=== PATIENT | male | born 1975 | race Caucasian/White ===

== ENCOUNTER 2020-10-24 08:58 | Outpatient (REF) | payer OTHER, SELFPAY ==
[2020-10-24 09:42] LABS: MANUAL DIFF FLAG NO
[2020-10-24 09:46] LABS: Basophils Absolute Auto 0.1 X10*3/uL (0.0-0.2); Basophils Percent Auto 0.9 % (0-2); Eosinophils Absolute Auto 0.2 X10*3/uL (0.0-0.4); Eosinophils Percent Auto 3.6 % (0-4); Hematocrit 45.7 % (42-52); Hemoglobin 14.8 g/dl (14.0-18.0); Imm Gran Abs Auto 0.02 X10*3/uL (0.00-0.03); Imm Gran Pct Auto 0.3 % (0.0-0.4); Lymphocytes Absolute Auto 1.3 X10*3/uL (1.2-4.9); Lymphocytes Percent Auto 22.1 % (20-40); Mean Corpuscular HGB Conc 32.4 g/dl (31.0-36.0); Mean Corpuscular Hemoglobin 28.5 pg (27.0-33.0); Mean Corpuscular Volume 87.9 fL (80-98); Mean Platelet Volume 9.8 fL (9.4-12.4); Monocytes Absolute Auto 0.4 X10*3/uL (0.1-1.2); Neutrophils Absolute Auto 3.9 X10*3/uL (2.0-8.3); Neutrophils Percent Auto 66.1 % (45-73); Platelet Count 311 X10*3/uL (160-400); Red Cell Distribution Width 12.5 % (11.0-16.0); White Blood Count 5.8 X10*3/uL (4.8-10.8)
[2020-10-24 10:09] LABS: Estimated Average Glucose 105 mg/dL; Hemoglobin A1c % 5.3 %
[2020-10-24 10:24] LABS: Alanine Aminotransferase 17 U/L (0-40); Albumin Level 4.3 g/dL (3.5-5.0); Alkaline Phosphatase 97 U/L (39-117); Anion Gap 12 (12-20); Aspartate Amino Transferase 20 U/L (5-37); Bilirubin Total 0.6 mg/dL (0.0-1.0); Blood Urea Nitrogen 16 mg/dL (9-16); Carbon Dioxide 27 mmol/L (22-29); Chloride 107 mmol/L (96-108); Cholesterol 177 mg/dL; Estimated Glomerular Filt Rate > 60; Glucose Random 92 mg/dL (60-115); HDL Cholesterol 40 mg/dL; LDL Cholesterol Calculated 121 mg/dl; Potassium 4.8 mmol/L (3.3-5.1); Sodium 141 mmol/L (135-145); Total Protein 7.3 g/dL (6.5-8.0); Triglycerides 83 mg/dL
[2020-10-24 10:54] LABS: Free T4 (Free Thyroxine) 1.06 ng/dL (0.71-1.85); Thyroid Stimulating Hormone 0.95 uIU/mL (0.32-4.0)
[2020-10-28 05:30] LABS: Folate 3.2 ng/mL (> or = 4.0); Vitamin B12 222 pg/mL (200-900)
== END 2020-10-24 08:59 | disposition home or self-care (01) ==
LOC: HO.LAB 08:58
PROVIDERS: PCP Internal Medicine; Visit Provider Internal Medicine
DX: E78.1 Pure hyperglyceridemia (principal); R63.1 Polydipsia; E78.00 Pure hypercholesterolemia, unspecified
CPT/HCPCS: 36415; 80053; 80061; 82607; 82746; 83036; 84439; 84443; 85025

== ENCOUNTER 2020-11-29 15:25 | Outpatient (REF) | payer OTHER, SELFPAY ==
--- NOTE | ~2020-11-29 | XR_ITS ---
EXAMINATION: XR knee standing BI, XR knee LT 2V CLINICAL INFORMATION: Reason for Exam M25.561 - Pain in right knee COMPARISON: None available at the time of this dictation. TECHNIQUE: Bilateral frontal, left lateral and patella sunrise view. FINDINGS: BONES: No fracture or dislocation is present. JOINTS: Mild narrowing of joint spaces suggest degenerative osteoarthritis. SOFT TISSUE: Normal XR/XR knee standing BI IMPRESSION: Mild DJD. No knee joint effusion.
--- NOTE | ~2020-11-29 | XR_ITS ---
EXAMINATION: XR knee standing BI, XR knee LT 2V CLINICAL INFORMATION: Reason for Exam M25.561 - Pain in right knee COMPARISON: None available at the time of this dictation. TECHNIQUE: Bilateral frontal, left lateral and patella sunrise view. FINDINGS: BONES: No fracture or dislocation is present. JOINTS: Mild narrowing of joint spaces suggest degenerative osteoarthritis. SOFT TISSUE: Normal XR/XR knee LT 2V IMPRESSION: Mild DJD. No knee joint effusion.
== END 2020-11-29 15:26 | disposition home or self-care (01) ==
LOC: HO.HOSX 15:25
PROVIDERS: Visit Provider Orthopaedic Surgery
DX: M25.562 Pain in left knee (principal); M25.561 Pain in right knee
CPT/HCPCS: 73560; 73565

== ENCOUNTER → 2020-11-30 09:46 | Outpatient (BNVA) | payer OTHER, SELFPAY | PROVIDERS: PCP Internal Medicine; Visit Provider Orthopaedic Surgery | DX: M22.2X2 Patellofemoral disorders, left knee (principal) | CPT/HCPCS: 20610; 99212; J1040 ==

== ENCOUNTER 2021-02-24 09:32 | Outpatient (REF) | payer OTHER, SELFPAY ==
[2021-02-24 10:18] LABS: MANUAL DIFF FLAG NO
[2021-02-24 10:22] LABS: Basophils Absolute Auto 0.1 X10*3/uL (0.0-0.2); Eosinophils Absolute Auto 0.2 X10*3/uL (0.0-0.4); Hematocrit 46.4 % (42-52); Hemoglobin 14.9 g/dl (14.0-18.0); Imm Gran Abs Auto 0.04 X10*3/uL (0.00-0.03); Imm Gran Pct Auto 0.7 % (0.0-0.4); Lymphocytes Absolute Auto 1.8 X10*3/uL (1.2-4.9); Lymphocytes Percent Auto 30.2 % (20-40); Mean Corpuscular HGB Conc 32.1 g/dl (31.0-36.0); Mean Corpuscular Hemoglobin 28.3 pg (27.0-33.0); Mean Platelet Volume 9.8 fL (9.4-12.4); Monocytes Absolute Auto 0.6 X10*3/uL (0.1-1.2); Monocytes Percent Auto 9.5 % (2-11); Neutrophils Absolute Auto 3.2 X10*3/uL (2.0-8.3); Neutrophils Percent Auto 54.6 % (45-73); Platelet Count 288 X10*3/uL (160-400); Red Blood Count 5.27 X10*6/uL (4.60-5.80); Red Cell Distribution Width 12.7 % (11.0-16.0); White Blood Count 5.8 X10*3/uL (4.8-10.8)
[2021-02-24 10:44] LABS: Alanine Aminotransferase 12 U/L (0-40); Albumin Level 4.4 g/dL (3.5-5.0); Alkaline Phosphatase 81 U/L (39-117); Anion Gap 13 (12-20); Aspartate Amino Transferase 17 U/L (5-37); Bilirubin Total 0.7 mg/dL (0.0-1.0); Blood Urea Nitrogen 17 mg/dL (9-16); C Reactive Protein 0.16 mg/dL (< or = 0.50); Calcium 9.5 mg/dL (8.4-10.2); Carbon Dioxide 25 mmol/L (22-29); Chloride 106 mmol/L (96-108); Estimated Glomerular Filt Rate > 60; Glucose Random 90 mg/dL (60-115); Potassium 4.5 mmol/L (3.3-5.1); Sodium 139 mmol/L (135-145); Total Protein 7.3 g/dL (6.5-8.0)
[2021-02-24 11:04] LABS: Erythrocyte Sedimentation Rate 2 MM/HR (0-15)
[2021-02-24 11:05] LABS: Thyroid Stimulating Hormone 0.69 uIU/mL (0.32-4.0)
[2021-02-24 11:10] LABS: Folate > 20.0 ng/mL (> or = 4.0); Vitamin B12 527 pg/mL (200-900)
[2021-02-28 22:16] LABS: Intrinsic Factor Antibodies Negative (Negative)
[2021-02-28 23:27] LABS: Parietal Cell Antibody <=20.0 Unit (<=20.0)
== END 2021-02-24 09:33 | disposition home or self-care (01) ==
LOC: HO.LAB 09:32
PROVIDERS: PCP Internal Medicine; Visit Provider Internal Medicine
DX: M79.10 Myalgia, unspecified site (principal); E53.8 Deficiency of other specified B group vitamins
CPT/HCPCS: 36415; 80053; 82607; 82746; 83516; 84443; 85025; 85652; 86140; 86340

== ENCOUNTER 2021-06-13 09:53 | Emergency (ER) | payer BC, SELFPAY ==
--- NOTE | 2021-06-13 | ECG_ITS ---
Test Reason : CHESTPAIN Blood Pressure : / mmHG Vent. Rate : 077 BPM Atrial Rate : 077 BPM P-R Int : 168 ms QRS Dur : 072 ms QT Int : 352 ms P-R-T Axes : 073 038 031 degrees QTc Int : 398 ms Normal sinus rhythm Normal ECG When compared with ECG of 02-MAY-2020 13:03, No significant change was found Referred By: Generic ED Physician Electronically Signed By:HARPER MUNGUIA MD
--- NOTE | ~2021-06-13 | XR_ITS ---
EXAMINATION: XR CHEST CLINICAL INFORMATION: Chest pain. COMPARISON: None TECHNIQUE: Frontal view of the chest was obtained. FINDINGS: The lungs are hyperinflated but clear of acute process. The heart size and pulmonary vascularity is normal. No gross bony abnormality seen. XR/XR chest 1V IMPRESSION: Hyperinflated lungs without acute process.
[2021-06-13 10:12] VITALS: BP 136/92; PULSE 72; RESP 16; TEMP 36.8; O2SAT 100; BMI 27.7
--- NOTE | 2021-06-13 11:22 | ED.CHESTPAIN ---
HPI - Chest Pain General Chief Complaint: Chest Pain Stated Complaint: chest pain Time Seen by Provider: 06/13/21 11:05 Source: patient Mode of arrival: ambulatory Limitations: no limitations History of Present Illness HPI narrative: 46-year-old male came in for evaluation of chest pain. Chest pain has been going for few weeks, intermittent, moderate 5/10, localized to mid chest, no radiation, nonexertional full wrist going to take the pain away, stress worsening the pain, no other associated symptoms, the patient stated that this pain is been going for few years intermittently but he never seek medical attention until today he spoke with his PCP who sent him to the the ED for further evaluation. Patient declined any recent travel, no prolonged immobilization, lower extremity swelling or tenderness. No fever, no chills, no exposure to sick contacts.. No family history of PE/dissection/MT. Patient is tobacco user, with history of hyperglycemia but declined hypertension or Diabetes type Related Data Previous Rx's Medication Instructions Recorded fluticasone propionate 50 2 spray INTRANASAL DAILY #16 g 09/23/20 mcg/actuation nasal spray,suspension (Allergy Relief (fluticasone)) triamcinolone acetonide 0.5 % 1 appl TOPICAL BID #15 g 10/21/20 topical cream cyanocobalamin (vitamin B-12) 1,000 mcg PO DAILY #30 cap 03/12/21 1,000 mcg capsule folic acid 1 mg tablet 1 mg PO DAILY #30 tab 03/12/21 Allergies Allergy/AdvReac Type Severity Reaction Status Date / Time No Known Allergies Allergy Verified 02/24/21 08:38 Review of Systems Review of Systems: All other systems are reviewed and are negative Constitutional: Reports as per HPI and Reports no additional constitutional complaints Eyes: Reports as per HPI and Reports no additional eye complaints Reports system reviewed and no additional complaints, except as documented Cardiovascular: Reports as per HPI and Reports no additional cardiovascular complaints Respiratory: Reports as per HPI and Reports no additional respiratory complaints Gastrointestinal: Reports as per HPI and Reports no additional gastrointestinal complaints Genitourinary: Reports no additional female genitourinary complaints Musculoskeletal: Reports no additional musculoskeletal complaints Skin/Breast: Reports system reviewed and no additional complaints, except as docu Psychiatric: Reports no additional psychiatric complaints Endocrine: Reports no additional endocrine complaints Hematologic/Lymphatic: Reports no additional hematologic/lymphatic complaints Allergic/Immunologic: Reports no additional allergic/immunologic complaints Reports system reviewed and no additional complaints, except as documented and Reports Abnormal speech present [facility] Past Medical History Medical History Alcohol abuse Asthma Erectile dysfunction GERD (gastroesophageal reflux disease) Hypertriglyceridemia Osteoarthritis, knee Overweight (BMI 25.0-29.9) Tobacco abuse Surgical History History of inguinal hernia repair Family History Family History Father Diabetes Hypertension Mother Alzheimers disease Paternal Aunt Myocardial infarction Social History Social History Housing: Apartment Alcohol intake: former Patient Tobacco Use Status: Current everyday Tobacco user Tobacco use type: Cigarette Cigarette Packs Per Day: 0.5 Cigarettes Per Day: 7 e-Cigarette/Vaping Use: Never Used Second Hand Smoke Exposure: Yes Advance Directives: No service: No Current occupational status: employed Physical Exam Vital Signs: Vital Signs: Last Vital Signs Temp 98.3 F 06/13/21 10:12 Pulse 72 06/13/21 10:12 Resp 16 06/13/21 10:12 BP 136/92 H 06/13/21 10:12 Pulse Ox 100 06/13/21 10:12 Body Mass Index 27.7 Vital signs have been reviewed as appeared to be correct. Blood pressure normal. Heart rate normal. Respiration rate normal. Temperature normal. Oxygen saturation normal. Appearance: Alert. Oriented X3. No acute distress. Head: Normal external exam. Normocephalic. Atraumatic. No Ferreira signs noted. No raccoon eyes noted Eyes: PERRLA. EOMI. Conjunctiva and sclera normal. Eyelids normal. ENT: TM's Normal. Pharynx normal. Uvula midline. Moist mucous membranes. No trismus noted. No drooling noted. No muffled voice noted. Neck: Normal inspection. Neck supple. FROM. No adenopathy. Thyroid Normal. No meningeal signs. No neck mass noted. CVS: Normal heart rate and rhythm. Heart sound normal. No murmurs noted. Pulses normal throughout. Respiratory: No respiratory distress. Painless inspiration. Breath sounds normal. No wheezes/rales/rhonchi noted. Chest nontender. No accessory muscle usage noted or decreased air movement noted. Abdomen: Soft and nontender. Bowel sounds normal in all 4 quadrants. No distention noted. No organomegaly noted. No visible injury noted. Back: No CVA tenderness. Full range of motion noted. Skin: Skin warm and dry. Normal skin color. Normal skin turgor. No rashes/lesions/lacerations noted. Extremities: No lower extremity edema. Extremities exhibit normal range of motion. Extremities nontender. Neuro: Oriented X 3. Cranial nerve exam: II-XII are grossly intact No motor deficit. No sensory deficit. Reflexes normal. Course Course Course Narrative: Assessment and plan. 46-year-old male came in for evaluation of chest pain that has been going on for a while intermittently, working today ruled out ACS. Patient was instructed to follow-up with PCP and have a outpatient Cardiology evaluation. MDM - Chest Pain Medical Records Data Attestation: I reviewed the patient's medical records. Lab Data Attestation: I reviewed the patient's lab results. Result diagrams: 06/13/21 12:16 06/13/21 12:16 Labs: Lab Results 06/13/21 06/13/21 06/13/21 Range/Units 12:16 12:16 12:16 WBC 7.5 (4.8-10.8) X10*3/uL RBC 5.15 (4.60-5.80) X10*6/uL Hgb 14.6 (14.0-18.0) g/dl Hct 45.3 (42-52) % MCV 88.0 (80-98) fL MCH 28.3 (27.0-33.0) pg MCHC 32.2 (31.0-36.0) g/dl RDW 12.9 (11.0-16.0) % Plt Count 291 (160-400) X10*3/uL MPV 9.9 (9.4-12.4) fL Immature Gran % (Auto) 0.3 (0.0-0.4) % Neut % (Auto) 60.7 (45-73) % Lymph % (Auto) 27.3 (20-40) % [place] % (Auto) 7.9 (2-11) % Eos % (Auto) 3.1 (0-4) % Baso % (Auto) 0.7 (0-2) % Lymph # (Auto) 2.0 (1.2-4.9) X10*3/uL [place] # (Auto) 0.6 (0.1-1.2) X10*3/uL Eos # (Auto) 0.2 (0.0-0.4) X10*3/uL Baso # (Auto) 0.1 (0.0-0.2) X10*3/uL Abs Immat Gran (auto) 0.02 (0.00-0.03) X10*3/uL Absolute Neuts (auto) 4.6 (2.0-8.3) X10*3/uL Absolute Nucleated RBC 0.000 (0.0-0.012) X10*3/uL Nucleated RBC % (auto) 0.0 (0.0-0.2) /100WBC D-Dimer < 200 NG/ML Sodium 139 (135-145) mmol/L Potassium 4.2 (3.3-5.1) mmol/L Chloride 106 (96-108) mmol/L Carbon Dioxide 24 (22-29) mmol/L Anion Gap 13 (12-20) BUN 13 (9-16) mg/dL Creatinine 0.98 (0.5-1.4) mg/dL Estim Creat Clear Calc 105.3 Estimated GFR > 60 Random Glucose 89 (60-115) mg/dL Calcium 9.7 (8.4-10.2) mg/dL Total Bilirubin 0.6 (0.0-1.0) mg/dL Direct Bilirubin 0.2 (0.0-0.5) mg/dL AST 19 (5-37) U/L ALT 15 (0-40) U/L Alkaline Phosphatase 73 (39-117) U/L Troponin I High Sens (<3.5-35.0) ng/L Total Protein 7.6 (6.5-8.0) g/dL Albumin 4.4 (3.5-5.0) g/dL Lipase 23 (8-78) U/L Urine Color Urine Appearance Urine pH (5.0-8.0) Ur Specific [place] (1.005-1.025) Urine Protein (NEG-TRACE) MG/DL Urine Glucose (UA) (NEG) MG/DL Urine Ketones (NEG) MG/DL Urine Blood (NEG) Urine Nitrite (NEG) Ur Leukocyte Esterase (NEG) Urine RBC (0) /HPF Urine WBC (0-4) /HPF Ur Squamous Epith Cells /LPF Calcium Phosphate Cryst /LPF Urine Bacteria /LPF COVID-19 ([facility]) (Negative) COVID-19 Clin Com 06/13/21 06/13/21 06/13/21 Range/Units 12:16 12:18 13:26 WBC (4.8-10.8) X10*3/uL RBC (4.60-5.80) X10*6/uL Hgb (14.0-18.0) g/dl Hct (42-52) % MCV (80-98) fL MCH (27.0-33.0) pg MCHC (31.0-36.0) g/dl RDW (11.0-16.0) % Plt Count (160-400) X10*3/uL MPV (9.4-12.4) fL Immature Gran % (Auto) (0.0-0.4) % Neut % (Auto) (45-73) % Lymph % (Auto) (20-40) % [place] % (Auto) (2-11) % Eos % (Auto) (0-4) % Baso % (Auto) (0-2) % Lymph # (Auto) (1.2-4.9) X10*3/uL [place] # (Auto) (0.1-1.2) X10*3/uL Eos # (Auto) (0.0-0.4) X10*3/uL Baso # (Auto) (0.0-0.2) X10*3/uL Abs Immat Gran (auto) (0.00-0.03) X10*3/uL Absolute Neuts (auto) (2.0-8.3) X10*3/uL Absolute Nucleated RBC (0.0-0.012) X10*3/uL Nucleated RBC % (auto) (0.0-0.2) /100WBC D-Dimer NG/ML Sodium (135-145) mmol/L Potassium (3.3-5.1) mmol/L Chloride (96-108) mmol/L Carbon Dioxide (22-29) mmol/L Anion Gap (12-20) BUN (9-16) mg/dL Creatinine (0.5-1.4) mg/dL Estim Creat Clear Calc Estimated GFR Random Glucose (60-115) mg/dL Calcium (8.4-10.2) mg/dL Total Bilirubin (0.0-1.0) mg/dL Direct Bilirubin (0.0-0.5) mg/dL AST (5-37) U/L ALT (0-40) U/L Alkaline Phosphatase (39-117) U/L Troponin I High Sens < 3.5 (<3.5-35.0) ng/L Total Protein (6.5-8.0) g/dL Albumin (3.5-5.0) g/dL Lipase (8-78) U/L Urine Color YELLOW Urine Appearance CLEAR Urine pH 6.0 (5.0-8.0) Ur Specific [place] 1.010 (1.005-1.025) Urine Protein NEG (NEG-TRACE) MG/DL Urine Glucose (UA) NEG (NEG) MG/DL Urine Ketones NEG (NEG) MG/DL Urine Blood TRACE (NEG) Urine Nitrite NEG (NEG) Ur Leukocyte Esterase NEG (NEG) Urine RBC 1-4 (0) /HPF Urine WBC 0-2 (0-4) /HPF Ur Squamous Epith Cells NONE /LPF Calcium Phosphate Cryst TRACE /LPF Urine Bacteria TRACE /LPF COVID-19 ([facility]) Negative (Negative) COVID-19 Clin Com See Note Imaging Data Chest x-ray: Radiologist's impression: No acute pathology. ECG Data ECG #1: Interpretation: Normal sinus rhythm at 77 beats per minutes, normal axis deviation, normal intervals, no ST-T changes. Discharge Plan Discharge Clinical Impression: Chest pain Qualifiers: Chest pain type: unspecified Qualified Code(s): R07.9 - Chest pain, unspecified Patient Disposition: Home, Self-Care Instructions: Chest Pain (ED) Prescriptions: No Action fluticasone propionate [Allergy Relief (fluticasone)] 50 mcg/actuation spray,suspension 2 spray intranasal DAILY Qty: 16 RF: 0 folic acid 1 mg tablet 1 mg PO DAILY Qty: 30 RF: 3 cyanocobalamin (vitamin B-12) 1,000 mcg capsule 1,000 mcg PO DAILY Qty: 30 RF: 3 triamcinolone acetonide 0.5 % cream 1 appl topical BID Qty: 15 RF: 0 Referrals: Po,Shahla Hensley MD [Primary Care Provider] - 2 days Luis Angel Radford MD [Physician] - 2 days
[2021-06-13 12:24] LABS: MANUAL DIFF FLAG NO
[2021-06-13 12:25] LABS: Basophils Absolute Auto 0.1 X10*3/uL (0.0-0.2); Basophils Percent Auto 0.7 % (0-2); Eosinophils Absolute Auto 0.2 X10*3/uL (0.0-0.4); Eosinophils Percent Auto 3.1 % (0-4); Hematocrit 45.3 % (42-52); Hemoglobin 14.6 g/dl (14.0-18.0); Imm Gran Abs Auto 0.02 X10*3/uL (0.00-0.03); Imm Gran Pct Auto 0.3 % (0.0-0.4); Lymphocytes Percent Auto 27.3 % (20-40); Mean Corpuscular HGB Conc 32.2 g/dl (31.0-36.0); Mean Corpuscular Hemoglobin 28.3 pg (27.0-33.0); Mean Platelet Volume 9.9 fL (9.4-12.4); Monocytes Absolute Auto 0.6 X10*3/uL (0.1-1.2); Monocytes Percent Auto 7.9 % (2-11); Neutrophils Absolute Auto 4.6 X10*3/uL (2.0-8.3); Neutrophils Percent Auto 60.7 % (45-73); Platelet Count 291 X10*3/uL (160-400); Red Blood Count 5.15 X10*6/uL (4.60-5.80); Red Cell Distribution Width 12.9 % (11.0-16.0); White Blood Count 7.5 X10*3/uL (4.8-10.8)
[2021-06-13 12:33] LABS: D Dimer < 200 NG/ML
[2021-06-13 12:34] LABS: Appearance Urine CLEAR; Color Urine YELLOW; Glucose Urine UA NEG (NEG); Leukocyte Esterase Urine NEG (NEG); Nitrite Urine NEG (NEG); UACC Culture Trigger NO; Urine Blood TRACE (NEG); Urine Ketones NEG (NEG); Urine Protein NEG (NEG-TRACE)
[2021-06-13 12:38] LABS: Alanine Aminotransferase 15 U/L (0-40); Albumin Level 4.4 g/dL (3.5-5.0); Alkaline Phosphatase 73 U/L (39-117); Anion Gap 13 (12-20); Aspartate Amino Transferase 19 U/L (5-37); Bilirubin Direct 0.2 mg/dL (0.0-0.5); Bilirubin Total 0.6 mg/dL (0.0-1.0); Blood Urea Nitrogen 13 mg/dL (9-16); Calcium 9.7 mg/dL (8.4-10.2); Carbon Dioxide 24 mmol/L (22-29); Chloride 106 mmol/L (96-108); Creatinine Clr Calc Pharmacy 105.3; Estimated Glomerular Filt Rate > 60; Glucose Random 89 mg/dL (60-115); Lipase 23 U/L (8-78); Potassium 4.2 mmol/L (3.3-5.1); Sodium 139 mmol/L (135-145); Total Protein 7.6 g/dL (6.5-8.0)
[2021-06-13 12:44] LABS: Calcium Phosphate Crystals Ur TRACE /LPF
[2021-06-13 12:45] LABS: Bacteria Urine TRACE /LPF; WBC Urine 0-2 /HPF (0-4)
[2021-06-13 12:48] LABS: COVID-19 Test Negative (Negative)
[2021-06-13 13:57] LABS: Troponin-I High Sensitivity < 3.5 ng/L (<3.5-35.0)
== END 2021-06-13 14:26 | disposition home or self-care (01) ==
PROVIDERS: Emergency Provider Emergency Medicine; PCP Internal Medicine
DX: R07.9 Chest pain, unspecified (principal); F17.210 Nicotine dependence, cigarettes, uncomplicated; Z71.6 Tobacco abuse counseling; Z79.899 Other long term (current) drug therapy; Z20.822 Contact with and (suspected) exposure to COVID-19
CPT/HCPCS: 36415; 71045; 80048; 80076; 81001; 83690; 84484; 85025; 85379; 87635; 93005; 99283

== ENCOUNTER 2021-11-08 11:52 | Outpatient (REF) | payer BC, SELFPAY ==
--- NOTE | ~2021-11-08 | XR_ITS ---
EXAMINATION: XR HAND, LEFT CLINICAL INFORMATION: Enthesopathy COMPARISON: None TECHNIQUE: PA, lateral, and oblique views of the left hand. FINDINGS: There is a lucency seen in the distal tuft of the thumb on one view, the lateral view, questionable for changes from old trauma. No acute fracture or dislocation is seen. Joint spaces are normal. Soft tissues are normal. XR/XR hand LT min 3V IMPRESSION: Question old trauma to the distal tuft of the thumb otherwise unremarkable exam.
== END 2021-11-08 11:53 | disposition home or self-care (01) ==
LOC: HO.HMGCX 11:52
PROVIDERS: Visit Provider Internal Medicine
DX: M77.8 Other enthesopathies, not elsewhere classified (principal)
CPT/HCPCS: 73130

== ENCOUNTER 2023-08-13 10:17 | Outpatient (AMB) | payer OTHER, SELFPAY ==
[2023-08-13 10:20] VITALS: BP 136/96; PULSE 75; O2SAT 98; BMI 31.5
--- NOTE | 2023-08-13 10:20 | A.OFFPC_ITS ---
Vital Signs 08/13/23 10:20 Height 5 ft 11 in Weight 226 lb BMI 31.5 BP 136/96 H Blood Pressure Location Lt brachial Position Sitting Pulse 75 Pulse Source Pulse Oximeter Pulse Oximetry (%) 98 Oxygen Delivery Method Room Air Intake Visit Reasons: possible ear infection Intake Note: Pt is here for a ear infection on right ear, been going on for 1 week. Pt went to urgent care and he was given antibiotics and ear drops. 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 Patient presents today for question of ear infection. Patient and reports left ear congestion and nasal congestion. Patient reports that his left ear is uncomfortable and feels like it is popping. Patient denies any fever, chills, cough or shortness of breath. Patient states he went to urgent care last week and he was started on Augmentin for an ear infection patient reports he still has over 6 doses of the medication left. Patient currently on Flonase and Kendra for allergy medication. Patient requesting a note for work. [facility] Medical History Alcohol abuse Asthma Erectile dysfunction GERD (gastroesophageal reflux disease) Hypertriglyceridemia Osteoarthritis, knee Overweight (BMI 25.0-29.9) Tobacco abuse Surgical History History of inguinal hernia repair Family History Father Diabetes Hypertension Mother Alzheimers disease Paternal Aunt Myocardial infarction Social History Housing: Apartment Alcohol intake: former Patient Tobacco Use Status: Current everyday Tobacco user Tobacco use type: Cigarette Cigarette Packs Per Day: 0.5 Cigarettes Per Day: 7 e-Cigarette/Vaping Use: Never Used Second Hand Smoke Exposure: Yes service: No Current occupational status: employed Cognitive needs: No Hearing needs: No Vision needs: No Questionnaire Thrive Questionnaire Date Thrive assessed: 09/06/22 ЕКАТЕРИНА-7 AMB Questionnaire ЕКАТЕРИНА-7 Date ЕКАТЕРИНА - 7 assessed: 09/06/22 Source: Developed by Drs. Shawn Clifton, Lexie Oakes, Tomas Rodriguez and colleagues, with an educational monae from [employer]. Review of Systems Const Denies chills, Denies fatigue, Denies fever(s) and Denies poor appetite Eyes Denies no additional complaints ENT Reports otalgia (right ear), Reports nasal congestion, Reports nasal discharge and Reports other (right ear is blocked ) Card Denies chest pain, Denies syncope, Denies rapid heart rate and Denies dyspnea Resp Denies cough and Denies dyspnea GI Denies change in stool character, Denies constipation, Denies diarrhea, Denies nausea and Denies vomiting Denies dysuria, Denies urinary frequency and Denies urinary urgency Neuro Denies confusion and Denies syncope Psych Denies confusion Endo Denies fatigue Physical exam (Primary Care) Vital Signs: Last Vital Signs Pulse 75 08/13/23 10:20 BP 136/96 H 08/13/23 10:20 Pulse Ox 98 08/13/23 10:20 Oxygen Delivery Method Room Air 08/13/23 10:20 BMI result Body Mass Index 31.5 Tobacco/Smoking Status: Tobacco use Status Tobacco use date assessed 09/06/22 08/13/23 10:31 Patient Tobacco Use Status Current everyday Tobacco 08/13/23 10:31 Tobacco use type Cigarette 08/13/23 10:31 e-Cigarette/Vaping Use Never Used 08/13/23 10:31 Thrive Assessment: Date of Thrive Assessment Date Thrive assessed 09/06/22 08/13/23 10:31 Const General: No confusion Orientation/consciousness: No confusion HENMT Head: Yes normocephalic and Yes atraumatic Ears: TM abnormal bullous on the right and erythematous on the right General nose exam: Normal nares present and Nasal discharge present clear Face and sinus: Yes normal facial exam and Yes sinus tenderness Eyes Conjunctivae: conjunctivae normal Chest Chest palpation & inspection: normal inspection of the chest Resp Effort & Inspection: normal respiratory effort Auscultation: clear to auscultation bilaterally, no crackles, no rhonchi and no wheezes Cardio Rate: regular rate Rhythm: regular rhythm Heart sounds: S1 normal heart sound present and S2 normal heart sound present GI Inspection: Yes normal to inspection Neuro General: No confusion Extrem General: No edema Assessment and Plan Assessment & Plan (1) Right otitis media: Code(s): H66.91 - Otitis media, unspecified, right ear Plan: Patient advised to continue on Augmentin for right otitis media and to continue on Kendra and Flonase daily for nasal congestion and allergies. Patient advise can take [id number] ibuprofen or Tylenol as needed for discomfort and right ear. Patient requesting a work note, work note given for today and tomorrow patient advised to drink plenty of fluids and rest. Signs and symptoms reviewed with patient when to follow-up Patient agreeable to plan of care. Plan Keep scheduled follow-up with PCP or follow-up sooner needed Coding Level of Care Code Est Pt Level 3 (44550) Diagnoses Right otitis media H66.91
== END 2023-08-13 11:46 | disposition home or self-care (01) ==
PROVIDERS: PCP Internal Medicine; Visit Provider Nurse Practitioner Family
DX: H66.91 Otitis media, unspecified, right ear (principal)
CPT/HCPCS: 99213

== ENCOUNTER 2025-07-22 15:49 | Emergency (ER) | payer SELFPAY ==
--- NOTE | ~2025-07-22 | XR_ITS ---
EXAMINATION: XR KNEE, RIGHT CLINICAL INFORMATION: knee pain COMPARISON: 11/30/2020 TECHNIQUE: Four views of the right knee. FINDINGS: No fracture, dislocation, or suspicious bone lesion. Normal bone mineralization. Normal alignment. There is minimal joint space narrowing of the medial and patellofemoral compartments. Lateral compartment is normal. Internal spurring of the tibial spines. No significant joint effusion. Soft tissues appear normal. XR/XR knee RT 4V IMPRESSION: 1. No acute bony or soft tissue abnormality of the right knee. No evidence of joint effusion. 2. Minimal medial and patellofemoral compartment osteoarthrosis. Electronically signed by: Derek Garcia MD 07/22/2025 04:50 PM EST
--- NOTE | ~2025-07-22 | US_ITS ---
CLINICAL HISTORY: Rightleg pain Venous duplex ultrasound right lower extremity Comparison: None provided Findings: The visualized deep veins are fully compressible with normal Doppler color flow and spectral tracings. IMPRESSION: 1. Negative for right lower extremity deep vein thrombosis. This document has been electronically signed by: Janette Naik MD on 07/22/2025 18:53:23
--- NOTE | ~2025-07-22 | XR_ITS ---
EXAMINATION: XR TIBIA AND FIBULA, RIGHT CLINICAL INFORMATION: knee pain COMPARISON: None available. TECHNIQUE: AP and lateral views of the right tibia and fibula were obtained. FINDINGS: The bones and soft tissues are normal. No fracture. No osseous lesions. XR/XR tibia fibula RT 2V IMPRESSION: Normal right tibia and fibula. Electronically signed by: Derek Garcia MD 07/22/2025 04:51 PM EST
[2025-07-22 15:58] VITALS: BP 147/99; PULSE 68; RESP 20; TEMP 36.4; O2SAT 99; BMI 28.9
--- NOTE | 2025-07-22 16:05 | ED_ITS ---
HPI - General Adult General Chief complaint: Extremity Injury, Lower Stated complaint: Knee Leg Pain Time Seen by Provider: 07/22/25 18:12 Source: patient Mode of arrival: ambulatory Limitations: no limitations History of Present Illness ED Provider: Misbah Plata HPI narrative: 50 yold male with ЕКАТЕРИНА, Vit[place] B12 and folic defeicincy presents to the ED for knee pain. Patinet states Knee pain is worser on movement. Patient denies any swelling, redness, chest pain, leg swelling, shortness of breath. Related Data Previous Rx's ?Medication ?Instructions ?Recorded fluticasone propionate 50 2 spray intranasal DAILY #16 grams 09/06/22 mcg/actuation nasal spray,suspension (Allergy Relief (fluticasone)) naproxen 500 mg tablet 500 mg PO BID PRN pain #14 t abs 07/22/25 prednisone 20 mg tablet 40 mg (2 x 20 mg) PO DAILY 5 days 07/22/25 #10 tabs Allergies Allergy/AdvReac Type Severity Reaction Status Date / Time No Known Allergies Allergy Verified 07/22/25 16:02 Review of Systems 2 Review of Systems: RIght knee posterior calf pain Yes all other systems are reviewed and are negative [facility] Past Medical History Medical History Alcohol abuse Asthma Erectile dysfunction GERD (gastroesophageal reflux disease) Hypertriglyceridemia Osteoarthritis, knee Overweight (BMI 25.0-29.9) Tobacco abuse Surgical History History of inguinal hernia repair Family History Family History Father Diabetes Hypertension Mother Alzheimers disease Paternal Aunt Myocardial infarction Social History Social History Housing: Apartment Alcohol intake: former Patient Tobacco Use Status: Current everyday Tobacco user Tobacco use type: Cigarette Cigarette Packs Per Day: 0.5 Cigarettes Per Day: 7 e-Cigarette/Vaping Use: Never Used Second Hand Smoke Exposure: Yes Advance Directives: No Advance Directives Information Provided: No Do you have a plan to hurt others: No Plan service: No Current occupational status: employed Cognitive needs: No Hearing needs: No Vision needs: No Physical Exam ED Vital Signs: Vital Signs - 24 hr 07/22/25 15:58 Temperature 97.5 F Pulse Rate 68 Respiratory Rate 20 Blood Pressure 147/99 H Pulse Oximetry 99 Oxygen Delivery Method Room Air BMI result Body Mass Index 28.9 Const General: cooperative, healthy appearing, comfortable, no acute distress, well developed, alert, awake and Physically active Orientation/consciousness: patient oriented x3 [facility] Head: Yes normal to inspection, Yes No palpable skull fracture present, Yes normocephalic and Yes atraumatic Eyes General: appearance normal, both eyes and all related structures Neck Neck: Yes normal visual inspection, Yes full ROM, Yes no lymphadenopathy, Yes no meningeal signs, Yes trachea midline, Yes supple, No anterior neck swelling and No tender Chest Chest palpation & inspection: normal inspection of the chest and normal palpation of entire chest wall Resp Effort & Inspection: normal respiratory effort and able to speak in complete sentences Auscultation: clear to auscultation bilaterally Cardio Jugular venous distension: no JVD Heart sounds: S1 normal heart sound present and S2 normal heart sound present GI Inspection: Yes normal to inspection Palpation (GI): Soft to palpation, not firm, nontender, no guarding and not rigid General: Yes no CVA tenderness Back/Spine/Pelvis Back: no CVA tenderness and No back tenderness Skin General skin exam: no rashes or lesions noted, elasticity normal and turgor normal Neuro General: patient oriented x3, gait normal, tone normal, moves all extremities, Normal light touch and pain sensation, no meningeal signs, no focal motor deficits, CN's II-XI intact bilaterally and normal sensation to monofilament Extrem General: Yes normal to inspection, Yes full ROM and Yes capillary refill normal Knee images: 2 1. Positive for tenderness on palpation. Negative crepitus, erythema, swelling, stiffness, bluish black discoloration, hotness, coldness, lesions, or red streaks. Rest of extremity normal. Motor/neuro/vascular exam intact 2. Positive for tenderness on palpation. Negative crepitus, erythema, swelling, stiffness, bluish black discoloration, hotness, coldness, lesions, or red streaks. Rest of extremity normal. Motor/neuro/vascular exam intact 3. Positive for tenderness on palpation. Negative crepitus, erythema, swelling, stiffness, bluish black discoloration, hotness, coldness, lesions, or red streaks. Rest of extremity normal. Motor/neuro/vascular exam intact 4. Positive for tenderness on palpation. Negative crepitus, erythema, swelling, stiffness, bluish black discoloration, hotness, coldness, lesions, or red streaks. Rest of extremity normal. Motor/neuro/vascular exam intact Psych Appearance: grossly normal, well kempt and not disheveled Course Course Course Narrative: RME: 50 year male presents to ED for right posterior knee calf pain past 2 weeks without any trauma. X-ray ultrasound ordered Medical Decision Making Medical Decision Making [facility] Narrative: [age] year male presents to ED for right knee pain that is worse on movement and posterior knee calf pain. Patient states no trauma. X-rays negative for fracture but does shows arthritis. Ultrasound negative for DVT. Labs were reassuring. Patient explained worrisome signs informed return to the ED immediately. NOt susepcting compartment syndrome, osteomylitits, arterial occlusion, nectorizing fascitits, cellulitits, or any other life threatening eitology. Differential Diagnosis Differential Diagnoses: The differential diagnosis associated with the presentation includes (Sepsis, gout, septic joint, DVT) Admission/Observation Consideration of admission/observation: Escalation of care including admission/observation considered Lab Data [facility] Lab Attestation statement: I reviewed the patient's lab results. 07/22/25 16:41 07/22/25 16:41 Labs: Lab Results 07/22/25 Range/Units 16:41 WBC 7.2 (4.8-10.8) X10*3/uL RBC 4.92 (4.60-5.80) X10*6/uL Hgb 14.0 (14.0-18.0) g/dl Hct 43.1 (42.0-52.0) % MCV 87.6 (80.0-98.0) fL MCH 28.5 (27.0-33.0) pg MCHC 32.5 (31.0-36.0) g/dl RDW 13.1 (11.0-16.0) % Plt Count 305 (160-400) X10*3/uL MPV 9.6 (9.4-12.4) fL Immature Gran % (Auto) 0.3 (0.0-0.4) % Neut % (Auto) 49.0 (45-73) % Lymph % (Auto) 36.0 (20-40) % Dixie % (Auto) 7.9 (2-11) % Eos % (Auto) 5.7 H (0-4) % Baso % (Auto) 1.1 (0-2) % Lymph # (Auto) 2.6 (1.2-4.9) X10*3/uL Dixie # (Auto) 0.6 (0.1-1.2) X10*3/uL Eos # (Auto) 0.4 (0.0-0.4) X10*3/uL Baso # (Auto) 0.1 (0.0-0.2) X10*3/uL Abs Immat Gran (auto) 0.02 (0.00-0.03) X10*3/uL Absolute Neuts (auto) 3.6 (2.0-8.3) x10*3/uL Absolute Nucleated RBC 0.000 (0.0-0.012) X10*3/uL Nucleated RBC % (auto) 0.0 (0.0-0.2) /100WBC PT 11.3 (11.2-13.5) SEC INR 0.9 (0.9-1.1) APTT 30.3 (26.7-34.1) SEC Sodium 141 (135-145) mmol/L Potassium 4.0 (3.3-5.1) mmol/L Chloride 108 (96-108) mmol/L Carbon Dioxide 27 (22-29) mmol/L Anion Gap 10 L (12-20) BUN 14 (9-16) mg/dL Creatinine 1.01 (0.5-1.4) mg/dL Estim Creat Clear Calc 107.3 Estimated GFR > 60 Random Glucose 113 (60-115) mg/dL Calcium 9.3 (8.4-10.2) mg/dL Total Bilirubin 0.5 (0.0-1.0) mg/dL AST 28 (5-37) U/L ALT 26 (0-40) U/L Alkaline Phosphatase 86 (39-117) U/L Total Protein 7.6 (6.5-8.0) g/dL Albumin 4.7 (3.5-5.0) g/dL Independent Interpretation I performed an independent interpretation of an: Plain X-Ray and Ultrasound Radiology Impression Discussion of test interpretation with radiology: I have reviewed the radiologist's reading. Independent Historian Clinical information obtained from an independent historian. History obtained from or confirmed by: Other (patient) Prescription Management I considered prescription management with: Pain Medication Discharge Plan Discharge Clinical Impression: Osteoarthritis of patellofemoral joint Patient Disposition: Home, Self-Care Instructions: Osteoarthritis (ED), Patellofemoral Pain Syndrome (ED), Patellofemoral Pain Syndrome Exercises (ED) Additional Instructions: Recommend follow up with primary care provider. Return to the ED immediately for any swelling, redness, stiffness, red streaks, calf pain, chest pain, shortness of breath, fever, chills, hotness, coldness, or any other life- threatening etiology. Ordering Physician: Misbah Plata Date of Service: 07/22/25 Procedure(s): XR knee RT 4V Accession Number(s): [id number] cc: Misbah Plata; Shahla Solorzano MD~ Reason for Exam: knee pain EXAMINATION: XR KNEE, RIGHT CLINICAL INFORMATION: knee pain COMPARISON: 11/30/2020 TECHNIQUE: Four views of the right knee. FINDINGS: No fracture, dislocation, or suspicious bone lesion. Normal bone mineralization. Normal alignment. There is minimal joint space narrowing of the medial and patellofemoral compartments. Lateral compartment is normal. Internal spurring of the tibial spines. No significant joint effusion. Soft tissues appear normal. XR/XR knee RT 4V IMPRESSION: 1. No acute bony or soft tissue abnormality of the right knee. No evidence of joint effusion. 2. Minimal medial and patellofemoral compartment osteoarthrosis. Electronically signed by: Derek Garcia MD 07/22/2025 04:50 PM [facility] Ordering Physician: Misbah Plata Date of Service: 07/22/25 Procedure(s): US venous duplex LE RT Accession Number(s): [id number] cc: Misbah Plata; Shahla Solorzano MD~ Reason for Exam: Rightleg pain CLINICAL HISTORY: Rightleg pain Venous duplex ultrasound right lower extremity Comparison: None provided Findings: The visualized deep veins are fully compressible with normal Doppler color flow and spectral tracings. IMPRESSION: 1. Negative for right lower extremity deep vein thrombosis. This document has been electronically signed by: Janette Naik MD on 07/22/2025 18:53:23 Prescriptions: New prednisone 20 mg tablet 40 mg PO DAILY 5 Days Qty: 10 0RF naproxen 500 mg tablet 500 mg PO BID PRN (Reason: pain) Qty: 14 0RF No Action fluticasone propionate [Allergy Relief (fluticasone)] 50 mcg/actuation spray,suspension 2 spray intranasal DAILY Qty: 16 0RF Rx Instructions: administer into each nostril Referrals: [facility] [facility] [Provider Group, Orthopedics] - 2 days Referral Note: Patellofemoral osteoarthrosis Clinical Impression: Osteoarthritis of patellofemoral joint Shahla Solorzano MD [Primary Care Provider, Internal Medicine] - 2 days Referral Note: Knee pain Clinical Impression: Osteoarthritis of patellofemoral joint Stand Alone Forms: Work/School Release Interventions: ED Discharge Assessment Last Done: 07/22/25 19:26 Discharge Date/Time: 07/22/25 19:27 Print Language: Upper Sorbian
[2025-07-22 16:54] LABS: MANUAL DIFF FLAG NO
[2025-07-22 16:58] LABS: Hematocrit 43.1 % (42.0-52.0); Hemoglobin 14.0 g/dl (14.0-18.0); Imm Gran Abs Auto 0.02 X10*3/uL (0.00-0.03); Imm Gran Pct Auto 0.3 % (0.0-0.4); Lymphocytes Absolute Auto 2.6 X10*3/uL (1.2-4.9); Mean Corpuscular HGB Conc 32.5 g/dl (31.0-36.0); Mean Corpuscular Hemoglobin 28.5 pg (27.0-33.0); Mean Corpuscular Volume 87.6 fL (80.0-98.0); NRBC Abs Auto 0.000 X10*3/uL (0.0-0.012); NRBC Pct Auto 0.0 /100WBC (0.0-0.2); Platelet Count 305 X10*3/uL (160-400); Red Blood Count 4.92 X10*6/uL (4.60-5.80); White Blood Count 7.2 X10*3/uL (4.8-10.8)
[2025-07-22 17:08] LABS: INTERNATIONAL NORM RATIO 0.9 (0.9-1.1); Prothrombin Time 11.3 SEC (11.2-13.5)
[2025-07-22 17:10] LABS: Partial Thromboplastin Time 30.3 SEC (26.7-34.1)
[2025-07-22 17:14] LABS: Alanine Aminotransferase 26 U/L (0-40); Albumin Level 4.7 g/dL (3.5-5.0); Alkaline Phosphatase 86 U/L (39-117); Anion Gap 10 (12-20); Aspartate Amino Transferase 28 U/L (5-37); Blood Urea Nitrogen 14 mg/dL (9-16); Calcium 9.3 mg/dL (8.4-10.2); Carbon Dioxide 27 mmol/L (22-29); Chloride 108 mmol/L (96-108); Creatinine Clr Calc Pharmacy 107.3; Estimated Glomerular Filt Rate > 60; Potassium 4.0 mmol/L (3.3-5.1); Sodium 141 mmol/L (135-145); Total Protein 7.6 g/dL (6.5-8.0)
[2025-07-22 19:10] VITALS: BP 144/93; PULSE 70; RESP 16; O2SAT 98
[2025-07-22 19:26] VITALS: BP 144/93; PULSE 70; RESP 16; TEMP -17.7; TEMP 0; O2SAT 98
== END 2025-07-22 19:27 | disposition home or self-care (01) ==
PROVIDERS: Physician Assistant; Emergency Provider Emergency Medicine; PCP Internal Medicine
DX: M19.09 Primary osteoarthritis, other specified site (principal); M79.604 Pain in right leg; Z79.899 Other long term (current) drug therapy
CPT/HCPCS: 36415; 73564; 73590; 80053; 85025; 85610; 85730; 93971; 99283; 99284

== ENCOUNTER → 2025-07-22 16:05 | Outpatient (BNV) | payer SELFPAY | PROVIDERS: PCP Internal Medicine; Visit Provider Radiology Diagnostic Radiology | DX: M79.604 Pain in right leg (principal); M25.561 Pain in right knee | CPT/HCPCS: 73564; 73590; 93971 ==